=== PATIENT | male | born 2005 | race African-American/Black ===

== ENCOUNTER 2025-01-09 19:54 | Emergency (ER) | payer OTHER ==
[~2025-01-09] VITALS: Ht 180.3 cm; Wt 109.0 kg
[2025-01-09] MEDS: KETOROLAC 30 MG/ML 1ML VIAL IV ONE (23:49)
[2025-01-10 01:25] VITALS: BP 148/75; TEMP 97.9; O2SAT 99
== END 2025-01-10 01:36 | disposition home or self-care (01) ==
LOC: EDBD 19:54 → M ED 19:54
DX: S83.402A Sprain of unspecified collateral ligament of left knee, initial encounter (principal); X58.XXXA Exposure to other specified factors, initial encounter; Y92.830 Public park as the place of occurrence of the external cause; Y93.02 Activity, running; Y99.9 Unspecified external cause status; Z91.018 Allergy to other foods
CPT/HCPCS: 73564; 96374; 99284; J1885

== ENCOUNTER 2025-08-24 09:57 | Day surgery (SDC) | payer OTHER ==
[~2025-08-24] VITALS: Ht 185.4 cm; Wt 103.0 kg
[2025-08-24] MEDS: LR 1,000 ML IV SCH (10:55)
[2025-08-24] MEDS ORDERED: MIDAZOLAM INJ 2 MG/2 ML VIAL As Ordered ONE (11:45)
[2025-08-24] MEDS ORDERED: LIDOCAINE 2% 100 MG/5 ML SDV (FOR ANES.) As Ordered ONE (11:45)
[2025-08-24] MEDS ORDERED: dexAMETHasone 4 MG/ML 1 ML VIAL As Ordered ONE (11:46)
[2025-08-24] MEDS ORDERED: ACETAMINOPHEN 1000MG/100ML IV BAG As Ordered ONE (12:16)
[2025-08-24] MEDS: ceFAZolin SOD 2 GM IV ONCE IV ONE (12:20)
[2025-08-24] MEDS ORDERED: KETOROLAC 30 MG/ML 1 ML VIAL As Ordered ONE (12:26)
[2025-08-24] MEDS ORDERED: ONDANSETRON 4MG/2ML VIAL As Ordered ONE (12:26)
[2025-08-24] MEDS: EPINEPHrine 1 MG/ML INJ 30 ML MD-VIAL As Ordered ONE (12:42)
[2025-08-24] MEDS: TRANEXAMIC ACID 100 MG/ML 10ML VIAL IV ONE (12:42)
[2025-08-24] MEDS: TRANEXAMIC ACID 100 MG/ML 10ML VIAL As Ordered ONE (13:01)
[2025-08-24] MEDS ORDERED: LR 1,000 ML IV SCH (13:15)
[2025-08-24] MEDS ORDERED: HYDROMORPHONE HCL 0.5 MG/0.5 ML SYRINGE IV PRN (13:15)
[2025-08-24 16:00] VITALS: BP 130/70; TEMP 97.1; O2SAT 99
== END 2025-08-24 16:00 | disposition home or self-care (01) ==
LOC: M SDC 09:57
PROVIDERS: ATTEND Orthopaedic Surgery
DX: M24.662 Ankylosis, left knee (principal); D55.0 Anemia due to glucose-6-phosphate dehydrogenase [G6PD] deficiency; Z91.018 Allergy to other foods
CPT/HCPCS: 27570; 29884; 93005; J0131; J0665; J0688; J1100; J1885; J2250; J2405; J3010